=== PATIENT | female | born 1980 | race African-American/Black ===

== ENCOUNTER 2017-02-23 14:44 | Emergency (ER) | payer MEDICAID ==
[~2017-02-23] VITALS: Ht 170.2 cm; Wt 81.0 kg
[2017-02-23 15:02] VITALS: BP 130/73
== END 2017-02-23 19:33 | disposition left against medical advice (07) ==
LOC: ER 15:29
DX: R10.2 Pelvic and perineal pain (principal); Z53.21 Procedure and treatment not carried out due to patient leaving prior to being seen by health care provider